=== PATIENT | female | born 1935 | race Caucasian/White ===

== ENCOUNTER → 2018-01-22 | Outpatient (CLI) | payer MEDICARE, BC ==
[2018-01-22 12:23] LABS: BASO # 0.1 10*3/uL (0.0-0.1); EOS # 0.1 10*3/uL (0.0-0.4); EOS % 1.4 % (1.0-4.0); HEMATOCRIT 35.2 % (37.0-47.0); HEMOGLOBIN 11.8 g/dl (12.0-16.0); LYMPH # 1.4 10*3/uL (1.3-4.4); LYMPH % 23.9 % (27.0-41.0); MEAN CELL VOLUME 95.1 fl (81.0-99.0); MEAN CORPUSCULAR HGB 31.9 pg (27.0-31.0); MEAN CORPUSCULAR HGB CONC 33.5 g/dl (33.0-37.0); MEAN PLATELET VOLUME 9.2 fl (9.6-12.3); MONO # 0.5 10*3/uL (0.1-1.0); MONO % 8.8 % (3.0-9.0); NEUT # 3.8 10*3/uL (2.3-7.9); NEUT % 64.7 % (47.0-73.0); PLATELET COUNT AUTOMATED 197 10*3/uL (130-400); RED CELL DISTRI WIDTH 13.3 % (0-14.5); WHITE BLOOD COUNT 5.9 10*3/uL (4.8-10.8)
[2018-01-22 12:52] LABS: ALBUMIN 3.7 gm/dl (3.1-4.5); BILIRUBIN, DIRECT 0.2 mg/dL (0.0-0.2); CREATININE 1.23 mg/dL (0.55-1.02); POTASSIUM 3.7 mmol/L (3.5-5.1); TOTAL PROTEIN 6.8 gm/dL (6.4-8.2)
== END | disposition home or self-care (01) ==
LOC: US 10:46
PROVIDERS: Family Medicine
DX: I65.23 Occlusion and stenosis of bilateral carotid arteries (principal); J44.9 Chronic obstructive pulmonary disease, unspecified; K44.9 Diaphragmatic hernia without obstruction or gangrene; I10 Essential (primary) hypertension; R55 Syncope and collapse; R51 Headache; Z79.899 Other long term (current) drug therapy

== ENCOUNTER → 2018-01-25 | Outpatient (CLI) | payer MEDICARE, BC | END | disposition home or self-care (01) | LOC: CT 01-24 14:00 | DX: I65.23 Occlusion and stenosis of bilateral carotid arteries (principal); R90.82 White matter disease, unspecified ==

== ENCOUNTER 2019-03-02 14:17 | Emergency (ER) | payer MEDICARE, BC ==
[~2019-03-02] VITALS: Ht 170.1 cm; Wt 60.3 kg
--- NOTE | ~2019-03-02 | EKG ---
[place], [place] ELECTROCARDIOGRAM REPORT NAME: DAVIDA BHAKTA UNIT #: [id number] ROOM: DOCTOR: NOEMY DRAFT REPORT BIRTHDATE: [birth year] [facility] Test Date: 2019-03-02 Test Time: 14:42:42 Pat Name: DAVIDA BHAKTA Department: Room: Gender: F Planning Technician: ALMAZ : 1935 Requested By: LAY DAVISON Order Number: [id number] Reading MD: Lilly Esposito MD Measurements Intervals [place] Rate: 61 P: 75 TN: 185 QRS: 17 QRSD: 100 T: 25 QT: 420 QTc: 423 Interpretive Statements Sinus rhythm Left ventricular hypertrophy Inferior infarct, old ST elevation, consider anterior injury Baseline wander in lead(s) V2 Electronically Signed On 03-05-2019 14:40:24 PDT by Lilly Esposito MD CM:EKGRPT:ELECTROCARDIOGRAM REPORT [id number] LAY SALGUERO DRAFT REPORT LAY DAVISON MD
[2019-03-02 14:57] LABS: BASO % 0.5 % (0.0-1.0); EOS # 0.1 10*3/uL (0.0-0.4); EOS % 1.3 % (1.0-4.0); HEMATOCRIT 32.4 % (37.0-47.0); HEMOGLOBIN 10.3 g/dl (12.0-16.0); LYMPH # 1.5 10*3/uL (1.3-4.4); LYMPH % 26.9 % (27.0-41.0); MEAN CORPUSCULAR HGB 29.3 pg (27.0-31.0); MEAN CORPUSCULAR HGB CONC 31.8 g/dl (33.0-37.0); MONO # 0.5 10*3/uL (0.1-1.0); MONO % 9.3 % (3.0-9.0); NEUT # 3.4 10*3/uL (2.3-7.9); NEUT % 61.6 % (47.0-73.0); PLATELET COUNT AUTOMATED 261 10*3/uL (130-400); RED BLOOD COUNT 3.52 10*6/uL (4.10-5.10); RED CELL DISTRI WIDTH 14.2 % (0-14.5); WHITE BLOOD COUNT 5.6 10*3/uL (4.8-10.8)
[2019-03-02 15:09] LABS: ACT PARTIAL THROMBO TIME 23.3 SECONDS (20.0-32.1); INTERNATIONAL NORM RATIO 0.9 (2.0-3.5)
[2019-03-02 15:14] LABS: ALBUMIN 3.6 gm/dl (3.1-4.5); ALKALINE PHOSPHATASE 88 U/L (45-117); BUN 15 mg/dl (7-24); CHLORIDE 104 mmol/L (98-107); CREATININE 0.81 mg/dL (0.55-1.02); POTASSIUM 4.1 mmol/L (3.5-5.1); SGOT/AST 19 IU/L (3-35); SGPT/ALT 27 U/L (12-78); SODIUM 139 mmol/L (136-145); TOTAL PROTEIN 6.7 gm/dL (6.4-8.2)
[2019-03-02 15:18] LABS: TROPONIN I < 0.015 ng/ml (<0.045)
[2019-03-02 15:29] LABS: BILIRUBIN NEGATIVE (NEGATIVE); BLOOD NEGATIVE (NEGATIVE); CLARITY CLEAR (CLEAR); COLOR YELLOW (YELLOW); GLUCOSE NEGATIVE (NEGATIVE); KETONE NEGATIVE (NEGATIVE); LEUKO ESTERASE NEGATIVE (NEGATIVE); NITRITE NEGATIVE (NEGATIVE); PH 5.5 (5.0-9.0); SPECIFIC GRAVITY <= 1.005 (1.005-1.030); UROBILINOGEN 0.2 E.U./dl (0.2-1.0)
[2019-03-02 15:40] LABS: RBC 0-2 rbc/hpf (0-2); WBC 0-2 wbc/hpf (0-5)
[2019-03-02 17:59] VITALS: BP 158/85
== END 2019-03-02 18:00 | disposition short-term general hospital (02) ==
LOC: ED 14:17
PROVIDERS: Emergency Medicine
DX: I63.9 Cerebral infarction, unspecified (principal); R53.1 Weakness; R51 Headache; I10 Essential (primary) hypertension; E78.00 Pure hypercholesterolemia, unspecified; Z88.8 Allergy status to other drugs, medicaments and biological substances; Z88.1 Allergy status to other antibiotic agents

== ENCOUNTER 2019-03-07 19:41 | Emergency (ER) | payer MEDICARE, BC ==
[~2019-03-07] VITALS: Ht 152.4 cm; Wt 57.7 kg
--- NOTE | ~2019-03-07 | EKG ---
[place], [place] ELECTROCARDIOGRAM REPORT NAME: DAVIDA BHAKTA UNIT #: [id number] ROOM: DOCTOR: NOEMY DRAFT REPORT BIRTHDATE: [address] [facility] Test Date: 2019-03-07 Test Time: 23:02:32 Pat Name: DAVIDA BHAKTA Department: Room: Gender: F [employer] Intelligence Technician: Carina Miller : 1935 Requested By: RENEE URIAS Order Number: [id number] Reading MD: Lilly Esposito MD Measurements Intervals [place] Rate: 76 P: 79 RI: 172 QRS: -1 QRSD: 101 T: 53 QT: 404 QTc: 455 Interpretive Statements Sinus rhythm Left atrial enlargement Left ventricular hypertrophy Inferior infarct, old Baseline wander in lead(s) V6 Compared to ECG 03/02/2019 14:42:42 Atrial abnormality now present Myocardial infarct finding still present ST (T wave) deviation still present Electronically Signed On 03-19-2019 3:35:22 PDT by Lilly Esposito MD CM:EKGRPT:ELECTROCARDIOGRAM REPORT [id number] RENEE BARROSO DRAFT REPORT RENEE URIAS DO
[2019-03-07] MEDS ORDERED: IBUPROFEN600 MG PO (20:03)
[2019-03-07] MEDS ORDERED: VITAMIN D32000 UNIT PO (20:07)
[2019-03-07] MEDS ORDERED: PLAVIX75 M1 PO (20:07)
[2019-03-07] MEDS ORDERED: HYDROCHLOROTH12.5 M3 PO (20:07)
[2019-03-07] MEDS ORDERED: ASPIRIN81 M1 PO (20:08)
[2019-03-07] MEDS ORDERED: DILTIAZEM60 MG PO (20:08)
[2019-03-07] MEDS ORDERED: MAGNESIUM OXID400 MG PO (20:08)
[2019-03-07] MEDS ORDERED: KLOR-CON M2020 ME1 PO (20:10)
[2019-03-07] MEDS ORDERED: FLORASTOR250 MG PO (20:10)
[2019-03-07] MEDS ORDERED: REQUIP0.5 MG PO (20:11)
[2019-03-07] MEDS ORDERED: 'CLONIDINE0.1 MG PO (20:11)
[2019-03-07] MEDS ORDERED: TYLENOL EXTRA500 MG PO (20:12)
[2019-03-07] MEDS ORDERED: LIPITOR40 MG PO (20:12)
[2019-03-07] MEDS ORDERED: MILK OF MA400 MG/5 M PO (20:12)
[2019-03-07 20:13] LABS: BASO % 0.6 % (0.0-1.0); EOS # 0.1 10*3/uL (0.0-0.4); EOS % 1.3 % (1.0-4.0); LYMPH # 1.5 10*3/uL (1.3-4.4); LYMPH % 21.6 % (27.0-41.0); MEAN CELL VOLUME 92.7 fl (81.0-99.0); MEAN CORPUSCULAR HGB 28.8 pg (27.0-31.0); MEAN PLATELET VOLUME 9.5 fl (9.6-12.3); MONO # 0.6 10*3/uL (0.1-1.0); MONO % 9.2 % (3.0-9.0); NEUT # 4.6 10*3/uL (2.3-7.9); NEUT % 67.2 % (47.0-73.0); PLATELET COUNT AUTOMATED 216 10*3/uL (130-400); RED BLOOD COUNT 3.13 10*6/uL (4.10-5.10); RED CELL DISTRI WIDTH 14.3 % (0-14.5); WHITE BLOOD COUNT 6.9 10*3/uL (4.8-10.8)
[2019-03-07] MEDS ORDERED: MELATONIN5 M6 PO (20:13)
[2019-03-07 20:23] LABS: ACT PARTIAL THROMBO TIME 22.8 SECONDS (20.0-32.1); INTERNATIONAL NORM RATIO 0.9 (2.0-3.5)
[2019-03-07 20:28] LABS: ALBUMIN 3.5 gm/dl (3.1-4.5); ALKALINE PHOSPHATASE 82 U/L (45-117); BUN 21 mg/dl (7-24); CHLORIDE 105 mmol/L (98-107); CREATININE 1.05 mg/dL (0.55-1.02); POTASSIUM 3.9 mmol/L (3.5-5.1); SGOT/AST 25 IU/L (3-35); SGPT/ALT 25 U/L (12-78); SODIUM 137 mmol/L (136-145); TOTAL PROTEIN 6.4 gm/dL (6.4-8.2)
[2019-03-07 20:30] LABS: TROPONIN I < 0.015 ng/ml (<0.045)
[2019-03-07 23:12] VITALS: BP 152/63
== END 2019-03-07 23:24 | disposition short-term general hospital (02) ==
LOC: ED 19:41
PROVIDERS: Student in an Organized Health Care Education/Training Program
DX: I63.9 Cerebral infarction, unspecified (principal); Z79.899 Other long term (current) drug therapy; Z79.82 Long term (current) use of aspirin; Z88.1 Allergy status to other antibiotic agents; Z88.8 Allergy status to other drugs, medicaments and biological substances

== ENCOUNTER 2019-06-04 11:17 | Emergency (ER) | payer MEDICARE, BC ==
--- NOTE | ~2019-06-04 | EKG ---
[place], [place] ELECTROCARDIOGRAM REPORT NAME: DAVIDA BHAKTA UNIT #: [id number] ROOM: DOCTOR: EPIPHANY DRAFT REPORT BIRTHDATE: [birth year] [facility] Test Date: 2019-06-04 Test Time: 11:25:02 Pat Name: DAVIDA BHAKTA Department: Room: Gender: F [employer]: : 1935 Requested By: NELLY DUMNOT Order Number: [id number] Reading MD: Jennifer Kasper MD Measurements Intervals [place] Rate: 64 P: 81 WI: 204 QRS: 34 QRSD: 101 T: 54 QT: 410 QTc: 423 Interpretive Statements Sinus rhythm Left atrial enlargement Low voltage, extremity leads Borderline ST elevation, anterior leads Compared to ECG 03/07/2019 23:02:32 Low QRS voltage now present ST (T wave) deviation now present Left ventricular hypertrophy no longer present Myocardial infarct finding no longer present Electronically Signed On 06-05-2019 8:14:33 PDT by Jennifer Kasper MD CM:EKGRPT:ELECTROCARDIOGRAM REPORT [id number] NELLY BARROSO DRAFT REPORT NELLY DUMONT DO
[~2019-06-04 11:17] MED LIST: 'CLONIDINE0.1 MG PO; ASPIRIN81 M1 PO; DILTIAZEM60 MG PO; FLORASTOR250 MG PO; HYDROCHLOROTH12.5 M3 PO; IBUPROFEN600 MG PO; KLOR-CON M2020 ME1 PO; LIPITOR40 MG PO; MAGNESIUM OXID400 MG PO; MELATONIN5 M6 PO; MILK OF MA400 MG/5 M PO; PLAVIX75 M1 PO; REQUIP0.5 MG PO; TYLENOL EXTRA500 MG PO; VITAMIN D32000 UNIT PO
[2019-06-04 12:10] LABS: BILIRUBIN NEGATIVE (NEGATIVE); BLOOD NEGATIVE (NEGATIVE); CLARITY CLEAR (CLEAR); COLOR YELLOW (YELLOW); GLUCOSE NEGATIVE (NEGATIVE); KETONE NEGATIVE (NEGATIVE); LEUKO ESTERASE NEGATIVE (NEGATIVE); NITRITE NEGATIVE (NEGATIVE); PH 6.5 (5.0-9.0); SPECIFIC GRAVITY <= 1.005 (1.005-1.030); UROBILINOGEN 0.2 E.U./dl (0.2-1.0)
[2019-06-04 12:20] LABS: BASO % 0.7 % (0.0-1.0); EOS # 0.1 10*3/uL (0.0-0.4); EOS % 1.9 % (1.0-4.0); HEMATOCRIT 24.1 % (37.0-47.0); HEMOGLOBIN 7.2 g/dl (12.0-16.0); LYMPH % 17.9 % (27.0-41.0); MEAN CELL VOLUME 79.5 fl (81.0-99.0); MEAN CORPUSCULAR HGB 23.8 pg (27.0-31.0); MEAN CORPUSCULAR HGB CONC 29.9 g/dl (33.0-37.0); MEAN PLATELET VOLUME 10.6 fl (9.6-12.3); MONO # 0.8 10*3/uL (0.1-1.0); MONO % 13.6 % (3.0-9.0); NEUT # 3.7 10*3/uL (2.3-7.9); NEUT % 65.5 % (47.0-73.0); PLATELET COUNT AUTOMATED 258 10*3/uL (130-400); RED BLOOD COUNT 3.03 10*6/uL (4.10-5.10); RED CELL DISTRI WIDTH 15.9 % (0-14.5); WHITE BLOOD COUNT 5.7 10*3/uL (4.8-10.8)
[2019-06-04 12:35] LABS: MUCOUS TRACE
[2019-06-04 12:36] LABS: EPITHELIAL CELLS 0-2; RBC 0-2 rbc/hpf (0-2)
[2019-06-04 12:51] LABS: ACT PARTIAL THROMBO TIME 22.9 SECONDS (20.0-32.1); INTERNATIONAL NORM RATIO 0.9 (2.0-3.5)
[2019-06-04 12:55] LABS: ALBUMIN 3.6 gm/dl (3.1-4.5); ALKALINE PHOSPHATASE 105 U/L (45-117); BUN 15 mg/dl (7-24); CHLORIDE 102 mmol/L (98-107); CREATININE 0.85 mg/dL (0.55-1.02); LIPASE 139 U/L (73-393); POTASSIUM 3.7 mmol/L (3.5-5.1); SGOT/AST 19 IU/L (3-35); SGPT/ALT 32 U/L (12-78); SODIUM 134 mmol/L (136-145); TOTAL PROTEIN 6.8 gm/dL (6.4-8.2)
[2019-06-04 13:01] LABS: TROPONIN I < 0.015 ng/ml (<0.045)
[2019-06-04 23:30] VITALS: BP 143/72
== END 2019-06-05 00:30 | disposition other institution (70) ==
LOC: ED 11:17
PROVIDERS: Nurse Practitioner Family
DX: D64.9 Anemia, unspecified (principal); R10.32 Left lower quadrant pain; I10 Essential (primary) hypertension; E11.9 Type 2 diabetes mellitus without complications; K21.9 Gastro-esophageal reflux disease without esophagitis; E78.5 Hyperlipidemia, unspecified; Z86.73 Personal history of transient ischemic attack (TIA), and cerebral infarction without residual deficits; Z88.8 Allergy status to other drugs, medicaments and biological substances; Z88.1 Allergy status to other antibiotic agents; Z88.6 Allergy status to analgesic agent; Z79.899 Other long term (current) drug therapy; Z79.82 Long term (current) use of aspirin

== ENCOUNTER → 2019-07-16 | Outpatient (CLI) | payer MEDICARE, BC | END | disposition home or self-care (01) | LOC: ORTHO 01:26 | DX: M16.12 Unilateral primary osteoarthritis, left hip (principal) ==

== ENCOUNTER 2019-10-16 14:42 | Emergency (ER) | payer MEDICARE, BC ==
[~2019-10-16] VITALS: Ht 152.4 cm; Wt 66.2 kg
[2019-10-16 15:05] VITALS: BP 192/72
[2019-10-16 16:04] LABS: BASO % 0.6 % (0.0-1.0); EOS # 0.1 10*3/uL (0.0-0.4); HEMATOCRIT 29.1 % (37.0-47.0); HEMOGLOBIN 8.6 g/dl (12.0-16.0); LYMPH # 1.5 10*3/uL (1.3-4.4); LYMPH % 22.7 % (27.0-41.0); MEAN CELL VOLUME 86.6 fl (81.0-99.0); MEAN CORPUSCULAR HGB 25.6 pg (27.0-31.0); MEAN CORPUSCULAR HGB CONC 29.6 g/dl (33.0-37.0); MONO # 0.8 10*3/uL (0.1-1.0); MONO % 12.4 % (3.0-9.0); NEUT # 4.1 10*3/uL (2.3-7.9); PLATELET COUNT AUTOMATED 294 10*3/uL (130-400); RED BLOOD COUNT 3.36 10*6/uL (4.10-5.10); RED CELL DISTRI WIDTH 18.5 % (0-14.5); WHITE BLOOD COUNT 6.5 10*3/uL (4.8-10.8)
[2019-10-16 16:09] LABS: BILIRUBIN NEGATIVE (NEGATIVE); BLOOD NEGATIVE (NEGATIVE); CLARITY CLEAR (CLEAR); COLOR YELLOW (YELLOW); GLUCOSE NEGATIVE (NEGATIVE); KETONE NEGATIVE (NEGATIVE); LEUKO ESTERASE NEGATIVE (NEGATIVE); NITRITE NEGATIVE (NEGATIVE); SPECIFIC GRAVITY 1.015 (1.005-1.030); UROBILINOGEN 0.2 E.U./dl (0.2-1.0)
[2019-10-16 16:22] LABS: ALBUMIN 3.8 gm/dl (3.1-4.5); ALKALINE PHOSPHATASE 124 U/L (45-117); BUN 15 mg/dl (7-24); CHLORIDE 105 mmol/L (98-107); CREATININE 0.85 mg/dL (0.55-1.02); POTASSIUM 3.7 mmol/L (3.5-5.1); SGOT/AST 20 IU/L (3-35); SGPT/ALT 25 U/L (12-78); SODIUM 139 mmol/L (136-145); TOTAL PROTEIN 7.3 gm/dL (6.4-8.2); TROPONIN I < 0.015 ng/ml (<0.045)
[2019-10-16 16:23] LABS: ACT PARTIAL THROMBO TIME 23.3 SECONDS (20.0-32.1); INTERNATIONAL NORM RATIO 0.9 (2.0-3.5)
[2019-10-16 16:28] LABS: WBC 0-2 wbc/hpf (0-5)
== END 2019-10-16 16:41 | disposition home or self-care (01) ==
LOC: ED 14:42
PROVIDERS: Emergency Medicine
DX: R51 Headache (principal); H53.8 Other visual disturbances; R55 Syncope and collapse; G30.9 Alzheimer's disease, unspecified; F02.80 Dementia in other diseases classified elsewhere, unspecified severity, without behavioral disturbance, psychotic disturbance, mood disturbance, and anxiety; R47.81 Slurred speech; Z88.8 Allergy status to other drugs, medicaments and biological substances; Z88.1 Allergy status to other antibiotic agents; Z88.6 Allergy status to analgesic agent; Z79.82 Long term (current) use of aspirin; Z79.899 Other long term (current) drug therapy

== ENCOUNTER 2019-11-04 05:54 | Emergency (ER) | payer MEDICARE, BC ==
[~2019-11-04] VITALS: Ht 162.5 cm; Wt 64.0 kg
[2019-11-04 08:30] VITALS: BP 128/82
== END 2019-11-04 09:08 | disposition home or self-care (01) ==
LOC: ED 05:54
DX: S63.501A Unspecified sprain of right wrist, initial encounter (principal); S70.01XA Contusion of right hip, initial encounter; K21.9 Gastro-esophageal reflux disease without esophagitis; F03.90 Unspecified dementia, unspecified severity, without behavioral disturbance, psychotic disturbance, mood disturbance, and anxiety; I10 Essential (primary) hypertension; E78.5 Hyperlipidemia, unspecified; G43.909 Migraine, unspecified, not intractable, without status migrainosus; Z86.73 Personal history of transient ischemic attack (TIA), and cerebral infarction without residual deficits; Z88.8 Allergy status to other drugs, medicaments and biological substances; Z88.1 Allergy status to other antibiotic agents; Z79.82 Long term (current) use of aspirin; W01.0XXA Fall on same level from slipping, tripping and stumbling without subsequent striking against object, initial encounter; Y93.89 Activity, other specified; Y92.121 Bathroom in nursing home as the place of occurrence of the external cause; Y99.8 Other external cause status

== ENCOUNTER 2019-11-10 14:56 | Emergency (ER) | payer MEDICARE, BC ==
[~2019-11-10] VITALS: Ht 160 cm; Wt 49.9 kg
[2019-11-10 14:57] VITALS: BP 123/59
[2019-11-10 16:03] LABS: BASO % 0.6 % (0.0-1.0); EOS # 0.2 10*3/uL (0.0-0.4); EOS % 2.3 % (1.0-4.0); HEMATOCRIT 27.2 % (37.0-47.0); HEMOGLOBIN 8.2 g/dl (12.0-16.0); LYMPH % 14.8 % (27.0-41.0); MEAN CELL VOLUME 84.5 fl (81.0-99.0); MEAN CORPUSCULAR HGB 25.5 pg (27.0-31.0); MEAN CORPUSCULAR HGB CONC 30.1 g/dl (33.0-37.0); MEAN PLATELET VOLUME 9.2 fl (9.6-12.3); MONO # 0.9 10*3/uL (0.1-1.0); MONO % 13.5 % (3.0-9.0); NEUT # 4.8 10*3/uL (2.3-7.9); NEUT % 68.5 % (47.0-73.0); PLATELET COUNT AUTOMATED 224 10*3/uL (130-400); RED BLOOD COUNT 3.22 10*6/uL (4.10-5.10); WHITE BLOOD COUNT 6.9 10*3/uL (4.8-10.8)
[2019-11-10 16:19] LABS: ALBUMIN 3.4 gm/dl (3.1-4.5); ALKALINE PHOSPHATASE 109 U/L (45-117); BUN 18 mg/dl (7-24); CHLORIDE 105 mmol/L (98-107); CREATININE 0.96 mg/dL (0.55-1.02); POTASSIUM 3.1 mmol/L (3.5-5.1); SGOT/AST 22 IU/L (3-35); SGPT/ALT 27 U/L (12-78); SODIUM 137 mmol/L (136-145); TOTAL PROTEIN 6.8 gm/dL (6.4-8.2)
[2019-11-10 18:00] LABS: BLOOD TRACE-LYSED (NEGATIVE); CLARITY SL CLOUDY (CLEAR); COLOR YELLOW (YELLOW); SPECIFIC GRAVITY 1.015 (1.005-1.030)
[2019-11-10 18:01] LABS: BILIRUBIN NEGATIVE (NEGATIVE); EPITHELIAL CELLS 0-2; GLUCOSE NEGATIVE (NEGATIVE); KETONE NEGATIVE (NEGATIVE); LEUKO ESTERASE NEGATIVE (NEGATIVE); NITRITE NEGATIVE (NEGATIVE); RBC 0-2 rbc/hpf (0-2); UROBILINOGEN 0.2 E.U./dl (0.2-1.0)
[2019-11-10] MEDS ORDERED: MUCINEX ER600 MG PO (18:37)
== END 2019-11-10 18:47 | disposition other institution (70) ==
LOC: ED 14:56
PROVIDERS: Physician Assistant
DX: R09.89 Other specified symptoms and signs involving the circulatory and respiratory systems (principal); R05 Cough; K21.9 Gastro-esophageal reflux disease without esophagitis; I10 Essential (primary) hypertension; G43.909 Migraine, unspecified, not intractable, without status migrainosus; E78.5 Hyperlipidemia, unspecified; Z88.8 Allergy status to other drugs, medicaments and biological substances; Z79.899 Other long term (current) drug therapy; Z79.82 Long term (current) use of aspirin; Z86.73 Personal history of transient ischemic attack (TIA), and cerebral infarction without residual deficits

== ENCOUNTER 2020-07-31 18:53 | Inpatient (IN) | payer MEDICARE, BC, MEDICAID ==
[~2020-07-31] VITALS: Ht 162.5 cm; Wt 54.9 kg
[~2020-07-31 18:53] MED LIST changes: +MUCINEX ER600 MG PO
[2020-07-31 18:57] VITALS: BP 154/52
[2020-07-31 19:33] LABS: BASO % 0.4 % (0.0-1.0); EOS # 0.1 10*3/uL (0.0-0.4); EOS % 2.5 % (1.0-4.0); HEMATOCRIT 25.4 % (37.0-47.0); LYMPH # 1.4 10*3/uL (1.3-4.4); LYMPH % 25.5 % (27.0-41.0); MEAN CELL VOLUME 81.2 fl (81.0-99.0); MEAN CORPUSCULAR HGB 22.7 pg (27.0-31.0); MONO # 0.8 10*3/uL (0.1-1.0); MONO % 13.5 % (3.0-9.0); NEUT # 3.2 10*3/uL (2.3-7.9); NEUT % 57.9 % (47.0-73.0); PLATELET COUNT AUTOMATED 221 10*3/uL (130-400); RED BLOOD COUNT 3.13 10*6/uL (4.10-5.10); RED CELL DISTRI WIDTH 18.6 % (0-14.5); WHITE BLOOD COUNT 5.5 10*3/uL (4.8-10.8)
[2020-07-31 19:46] LABS: BUN 17 mg/dl (7-24); CHLORIDE 116 mmol/L (98-107); CREATININE 0.79 mg/dL (0.55-1.02); POTASSIUM 5.1 mmol/L (3.5-5.1); SODIUM 144 mmol/L (136-145)
--- NOTE | 2020-07-31 20:46 | NUR ---
PT DAUGHTER, PETR ALBA, CALLED AND WAS PROVIDED UPDATE ON PT.SHE PROVIDES PASSWORD "[id number]".
[2020-07-31 21:00] VITALS: BP 182/54
--- NOTE | 2020-07-31 21:00 | NUR ---
A 85, admitted to , under the services of GIA Lucas MD with a diagnosis of ANEMIA, GI BLEED. Chief complaint is BLOOD LOSS, POSITIVE OCCULT BLOOD. Patient arrived via bed from ER. Monitor applied. Initial assessment completed. Vital signs taken and recorded. GIA LUCAS MD notified of admission to the unit. Orders received. See assessment for past medical history, medications and allergies. Patient and/or family oriented to unit. [facility] visitation policy reviewed. Clothing/patient valuable form completed. MERON HUTTON
[2020-07-31] MEDS ORDERED: COREG6.25 MG PO (21:18)
[2020-07-31] MEDS ORDERED: BRILINTA90 M1 PO (21:19)
[2020-07-31] MEDS ORDERED: OCUVITE EYE +1 EACH PO (21:22)
[2020-07-31] MEDS ORDERED: OMEPRAZOLE MAGN20 MG PO (21:22)
[2020-07-31] MEDS ORDERED: NAMENDA10 MG PO (21:23)
[2020-07-31] MEDS ORDERED: BREO ELLIPTA 21 EACH INH (21:24)
[2020-07-31] MEDS ORDERED: ASPERCREME LIDO73 ML T (21:24)
[2020-07-31] MEDS ORDERED: ROBITUSSIN5 ML PO (21:28)
[2020-08-01] VITALS: BP 156/61
--- NOTE | 2020-08-01 01:25 | NUR ---
Patient set off bed alarm, patient very confused, pulled out iv and took of gown and heart monitor. Reoriented patient to hospital, started new iv and replaced heart monitor. Bed alarm set, reminded patient of call light.
[2020-08-01 06:52] LABS: BASO % 0.5 % (0.0-1.0); EOS # 0.2 10*3/uL (0.0-0.4); HEMATOCRIT 27.5 % (37.0-47.0); LYMPH # 1.1 10*3/uL (1.3-4.4); LYMPH % 18.4 % (27.0-41.0); MEAN CELL VOLUME 81.1 fl (81.0-99.0); MEAN CORPUSCULAR HGB 22.4 pg (27.0-31.0); MEAN CORPUSCULAR HGB CONC 27.6 g/dl (33.0-37.0); MONO # 0.5 10*3/uL (0.1-1.0); MONO % 8.1 % (3.0-9.0); NEUT # 4.3 10*3/uL (2.3-7.9); NEUT % 69.8 % (47.0-73.0); PLATELET COUNT AUTOMATED 248 10*3/uL (130-400); RED BLOOD COUNT 3.39 10*6/uL (4.10-5.10); RED CELL DISTRI WIDTH 18.3 % (0-14.5); WHITE BLOOD COUNT 6.1 10*3/uL (4.8-10.8)
--- NOTE | 2020-08-01 07:00 | NUR ---
ARRIVED ON SHIFT, REPORT RECEIVED FROM OFFGOING NURSE, ASSUMED CARE OF PATIENT.
[2020-08-01 07:28] LABS: CHLORIDE 112 mmol/L (98-107); SODIUM 143 mmol/L (136-145)
--- NOTE | 2020-08-01 07:35 | NUR ---
INTRODUCED SELF TO PATIENT, BED IN LOW POSITION, WHEEL LOCKS ENGAGED, SIDE RAILS UP X 2 FOR TURNING AND REPOSITIONING, BED ALARM ON, CALL LIGHT WITHIN REACH, NO NEEDS VOICED AT THIS TIME, WHITE BOARD UPDATED.
[2020-08-01 07:38] LABS: BUN 10 mg/dl (7-24); CREATININE 0.64 mg/dL (0.55-1.02); IRON 16 ug/dL (50-170)
--- NOTE | 2020-08-01 09:28 | NUR ---
Shift chart check completed.
[2020-08-01 12:00] VITALS: BP 159/86
--- NOTE | 2020-08-01 15:00 | NUR ---
PICKED PATIENT UP AT THIS TIME FROM [facility]. REPORT RECEIVED. PATIENT LAYING IN BED. CO LEFT SHOULDER PAIN. NOTIFIED AND NEW ORDERS WERE RECEIVED. ASSESSMENT COMPLETE. RESPS EASY AND REGULAR. CALL LIGHT IN REACH. BED ALARM ON.
--- NOTE | 2020-08-01 15:31 | NUR ---
24 HR chart check completed.
--- NOTE | 2020-08-01 15:34 | NUR ---
MEDICATED WITH PRN TYLENOL FOR CO LEFT SHOULDER PAIN. WILL ASSESS EFFECTIVENESS.
[2020-08-01 16:00] VITALS: BP 149/70
--- NOTE | 2020-08-01 16:34 | NUR ---
TYLENOL HELPED SOME PER PATIENT.
--- NOTE | 2020-08-01 18:17 | NUR ---
PREP STARTED FOR EGD PER 'S ORDERS.
[2020-08-01 20:00] VITALS: BP 192/88
--- NOTE | 2020-08-01 20:57 | NUR ---
IX PO NORVASC GIVEN PER DR DOLAN FOR ELEVATED BP
--- NOTE | 2020-08-01 20:57 | NUR ---
2019 TYLENOL GIVEN FOR C/O HEADACHE AND LEG ACHE
--- NOTE | 2020-08-01 21:44 | NUR ---
PATIENT RESTING AT THIS TIME.
[2020-08-02] VITALS (9 sets, daily range): BP systolic 103–171; BP diastolic 55–88
--- NOTE | 2020-08-02 01:53 | NUR ---
tap water enema given at this time.
--- NOTE | 2020-08-02 08:20 | NUR ---
Patient comes in from [facility] manager intermediate resident. Covid test ordered.
--- NOTE | 2020-08-02 09:00 | NUR ---
CM in to see patient. She is a LTC resident at [facility] and plans to return there upon discharge. She states she ambulates with a walker or gets around in a wheelchair. regional planner following. She is awaiting her EGD/colo today.
--- NOTE | 2020-08-02 12:52 | NUR ---
PATIENT OFF THE FLOOR FOR EGD/COLO.
--- NOTE | 2020-08-02 15:50 | NUR ---
PATIENT BACK FROM SURGERY.
--- NOTE | 2020-08-02 15:58 | NUR ---
NEW ORDERS RECEIVED AND PUT IN FROM . DR. ARRIAZA STATES HE WILL SEE PATIENT TOMORROW.
--- NOTE | 2020-08-02 16:17 | NUR ---
PATIENT RESTING IN BED. POSITIONED FOR COMFORT. WARM BLANKETS PROVIDED. BED ALARM ON. CALL LIGHT IN REACH.
--- NOTE | 2020-08-02 22:00 | NUR ---
PATIENT'S GLASSES WERE FOUND AND GIVEN BACK TO HER
[2020-08-03] VITALS (12 sets, daily range): BP systolic 122–163; BP diastolic 45–85
[2020-08-03 06:44] LABS: BASO % 0.2 % (0.0-1.0); EOS # 0.1 10*3/uL (0.0-0.4); EOS % 1.2 % (1.0-4.0); HEMATOCRIT 25.4 % (37.0-47.0); LYMPH # 1.2 10*3/uL (1.3-4.4); LYMPH % 13.6 % (27.0-41.0); MEAN CELL VOLUME 81.2 fl (81.0-99.0); MEAN CORPUSCULAR HGB 22.7 pg (27.0-31.0); MEAN PLATELET VOLUME 10.1 fl (9.6-12.3); MONO # 0.9 10*3/uL (0.1-1.0); MONO % 9.3 % (3.0-9.0); NEUT # 6.9 10*3/uL (2.3-7.9); NEUT % 75.5 % (47.0-73.0); PLATELET COUNT AUTOMATED 234 10*3/uL (130-400); RED BLOOD COUNT 3.13 10*6/uL (4.10-5.10); RED CELL DISTRI WIDTH 18.6 % (0-14.5); WHITE BLOOD COUNT 9.1 10*3/uL (4.8-10.8)
[2020-08-03 07:05] LABS: ALBUMIN 2.9 gm/dl (3.1-4.5); ALKALINE PHOSPHATASE 95 U/L (45-117); BUN 7 mg/dl (7-24); CHLORIDE 112 mmol/L (98-107); CREATININE 0.81 mg/dL (0.55-1.02); SGOT/AST 44 IU/L (3-35); SGPT/ALT 16 U/L (12-78); SODIUM 144 mmol/L (136-145)
--- NOTE | 2020-08-03 16:05 | NUR ---
DR. RAE'S OFFICE NOTIFIED OF CONSULT.
--- NOTE | 2020-08-03 19:30 | NUR ---
PATIENT IS NOT HAVING ANY S&S INDICATING REACTION TO BLOOD TRANSFUSION. RATE OF FLOW INCREASED TO 200 CC/HR
--- NOTE | 2020-08-03 20:00 | NUR ---
IV started left antecubital with #22 protective cath after 0 attempts. Site prepped with Chloroprep. Sterile dressing applied. Patient tolerated procedure well. IV PRBC infusing at 200 cc/hr. ABDIRASHID COCHRAN
--- NOTE | 2020-08-03 20:00 | NUR ---
Hep Lock discontinued, CHERELLE. Site symptomatic, PULLED OUT. Pressure applied. Sterile dressing applied. ABDIRASHID COCHRAN
--- NOTE | 2020-08-03 20:23 | NUR ---
C/O RIGHT SHOULDER AND UPPER ARM PAIN. TYLENOL GIVEN. PATIENT ALERT, UNFORGETFUL AT TIMES. ABLE TO FOLLOW DIRECTIONS. BLOOD PRODUCT RUNNING.
--- NOTE | 2020-08-03 20:27 | NUR ---
BLOOD TRANSFUSION COMPLETED AT THIS TIME, NO S&S TO INDICATE REACTION TO BLOOD PRODUCT. WILL CONTINUE TO MONITOR AND OBTAINED VITALS PER POLICY/PROCEDURES.
--- NOTE | 2020-08-03 20:57 | NUR ---
POST TRANFUSION VITALS ARE WNL. PATIENT HAD NO COMPLAINTS INDICATING REACTION TO BLOOD PRODUCT. WILL CONTINUE TO MONITOR
--- NOTE | 2020-08-03 21:23 | NUR ---
REASSESSMENT OF PAIN, PATIENT NOT AVOIDING RIGHT SHOULDER LYING NOR GARDING.
[2020-08-04] VITALS: BP 142/62
[2020-08-04 06:17] LABS: BASO % 0.4 % (0.0-1.0); EOS # 0.2 10*3/uL (0.0-0.4); EOS % 1.9 % (1.0-4.0); HEMATOCRIT 30.7 % (37.0-47.0); LYMPH # 1.6 10*3/uL (1.3-4.4); LYMPH % 14.1 % (27.0-41.0); MEAN CELL VOLUME 81.2 fl (81.0-99.0); MEAN CORPUSCULAR HGB 23.8 pg (27.0-31.0); MEAN CORPUSCULAR HGB CONC 29.3 g/dl (33.0-37.0); MEAN PLATELET VOLUME 9.9 fl (9.6-12.3); MONO # 0.8 10*3/uL (0.1-1.0); MONO % 7.3 % (3.0-9.0); NEUT # 8.5 10*3/uL (2.3-7.9); NEUT % 76.1 % (47.0-73.0); PLATELET COUNT AUTOMATED 205 10*3/uL (130-400); RED BLOOD COUNT 3.78 10*6/uL (4.10-5.10); RED CELL DISTRI WIDTH 18.3 % (0-14.5); WHITE BLOOD COUNT 11.2 10*3/uL (4.8-10.8)
--- NOTE | 2020-08-04 07:00 | NUR ---
IN TO SEE PATIENT.
--- NOTE | 2020-08-04 07:45 | NUR ---
PATIENT RESTING IN BED. VOICES NO CONCERNS AT THIS TIME. DENIES ANY NEEDS. ASSESSMENT COMPLETE. RESPS ERND. CALL LIGHT IN REACH.
[2020-08-04 08:00] VITALS: BP 150/46
[2020-08-04 08:23] LABS: BUN 6 mg/dl (7-24); CHLORIDE 114 mmol/L (98-107); CREATININE 0.66 mg/dL (0.55-1.02); POTASSIUM 3.2 mmol/L (3.5-5.1); SODIUM 143 mmol/L (136-145)
--- NOTE | 2020-08-04 09:00 | NUR ---
CM in to see patient. No new needs or request at this time. When medically stable she will be discharged to [facility] where she is a LTC resident. cement worker following.
[2020-08-04 12:00] VITALS: BP 155/57
--- NOTE | 2020-08-04 12:01 | NUR ---
24 HR chart check completed.
--- NOTE | 2020-08-04 13:30 | NUR ---
IN TO SEE PATIENT.
[2020-08-04 16:00] VITALS: BP 148/50
[2020-08-04 20:00] VITALS: BP 161/60
--- NOTE | 2020-08-04 23:38 | NUR ---
PRN TYLENOL GIVEN FOR PT COMPLAINTS OF RIGHT SHOULDER PAIN RATING IT 6/10. CALL LIGHT WITHN REACH, WILL MONITOR
[2020-08-05] VITALS: BP 164/80
--- NOTE | 2020-08-05 00:30 | NUR ---
PRN MEDICATION APPEARS EFFECTIVE, PT SLEEPING
[2020-08-05 06:37] LABS: BASO % 0.5 % (0.0-1.0); EOS # 0.3 10*3/uL (0.0-0.4); EOS % 3.4 % (1.0-4.0); HEMATOCRIT 29.7 % (37.0-47.0); LYMPH # 1.4 10*3/uL (1.3-4.4); LYMPH % 15.5 % (27.0-41.0); MEAN CELL VOLUME 81.6 fl (81.0-99.0); MEAN CORPUSCULAR HGB 23.9 pg (27.0-31.0); MEAN CORPUSCULAR HGB CONC 29.3 g/dl (33.0-37.0); MEAN PLATELET VOLUME 10.4 fl (9.6-12.3); MONO # 0.8 10*3/uL (0.1-1.0); NEUT # 6.3 10*3/uL (2.3-7.9); NEUT % 71.3 % (47.0-73.0); PLATELET COUNT AUTOMATED 213 10*3/uL (130-400); RED BLOOD COUNT 3.64 10*6/uL (4.10-5.10); RED CELL DISTRI WIDTH 18.1 % (0-14.5); WHITE BLOOD COUNT 8.9 10*3/uL (4.8-10.8)
[2020-08-05 07:00] LABS: BUN 9 mg/dl (7-24); CHLORIDE 110 mmol/L (98-107); CREATININE 0.74 mg/dL (0.55-1.02); SODIUM 142 mmol/L (136-145)
[2020-08-05 08:00] VITALS: BP 146/84
--- NOTE | 2020-08-05 08:00 | NUR ---
Updated clinicals faxed to [facility]; Covid test was negative. 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
[2020-08-05] MEDS ORDERED: FEROSUL325 MG PO (08:03)
[2020-08-05] MEDS ORDERED: COREG12.5 M1 PO (08:06)
[2020-08-05] MEDS ORDERED: VOLTAREN100 GM TD (08:06)
--- NOTE | 2020-08-05 08:20 | NUR ---
TYLENOL GIVEN FOR C/O RT SHOULDER PAIN. WILL MONITOR.
--- NOTE | 2020-08-05 09:02 | NUR ---
Patient is discharged to return to [facility] via [place] at 12:00 noon. Discharge orders and summary faxed. NH, nursing/house steward/stewardess and daughter all notified.
--- NOTE | 2020-08-05 09:20 | NUR ---
TYLENOL EFFECTIVE PER PT.
--- NOTE | 2020-08-05 12:15 | NUR ---
[facility] Discharge instructions reviewed with patient/family. Patient receptive and verbalizes understanding. Follow-up care arranged. Written instructions given to patient/family. WILMA GARZON
== END 2020-08-05 12:12 | DRG 378 ==
LOC: ED 18:53 → EDHOLD 20:13 → 4E 20:13
PROVIDERS: Internal Medicine; ADMIT Internal Medicine; ATTEND Internal Medicine
PROC: 0DB68ZX Excision of Stomach, Via Natural or Artificial Opening Endoscopic, Diagnostic (ICD-10-PCS; principal; 2020-08-02)
PROC: 0DBH8ZX Excision of Cecum, Via Natural or Artificial Opening Endoscopic, Diagnostic (ICD-10-PCS; principal; 2020-08-02)
PROC: 30233N1 Transfusion of Nonautologous Red Blood Cells into Peripheral Vein, Percutaneous Approach (ICD-10-PCS; 2020-08-03)
DX: K29.01 Acute gastritis with bleeding (principal); E44.1 Mild protein-calorie malnutrition; E78.2 Mixed hyperlipidemia; Z20.828 Contact with and (suspected) exposure to other viral communicable diseases; D50.0 Iron deficiency anemia secondary to blood loss (chronic); I65.29 Occlusion and stenosis of unspecified carotid artery; I10 Essential (primary) hypertension; K44.9 Diaphragmatic hernia without obstruction or gangrene; B37.9 Candidiasis, unspecified; E87.6 Hypokalemia; K57.31 Diverticulosis of large intestine without perforation or abscess with bleeding; I35.0 Nonrheumatic aortic (valve) stenosis; Z88.6 Allergy status to analgesic agent; Z88.1 Allergy status to other antibiotic agents; Z88.8 Allergy status to other drugs, medicaments and biological substances; Z86.73 Personal history of transient ischemic attack (TIA), and cerebral infarction without residual deficits; Z79.899 Other long term (current) drug therapy

== ENCOUNTER 2021-01-22 14:19 | Emergency (ER) | payer MEDICARE, BC ==
[~2021-01-22 14:19] MED LIST changes: +ASPERCREME LIDO73 ML T; +BREO ELLIPTA 21 EACH INH; +BRILINTA90 M1 PO; +COREG12.5 M1 PO; +COREG6.25 MG PO; +FEROSUL325 MG PO; +NAMENDA10 MG PO; +OCUVITE EYE +1 EACH PO; +OMEPRAZOLE MAGN20 MG PO; +ROBITUSSIN5 ML PO; +VOLTAREN100 GM TD
[2021-01-22 14:31] VITALS: BP 184/67
[2021-01-22 14:49] LABS: BASO % 0.5 % (0.0-1.0); EOS # 0.1 10*3/uL (0.0-0.4); EOS % 1.7 % (1.0-4.0); HEMATOCRIT 37.2 % (37.0-47.0); LYMPH # 1.4 10*3/uL (1.3-4.4); LYMPH % 21.9 % (27.0-41.0); MEAN CELL VOLUME 102.8 fl (81.0-99.0); MEAN CORPUSCULAR HGB 33.1 pg (27.0-31.0); MEAN CORPUSCULAR HGB CONC 32.3 g/dl (33.0-37.0); MEAN PLATELET VOLUME 9.4 fl (9.6-12.3); MONO # 0.7 10*3/uL (0.1-1.0); MONO % 10.8 % (3.0-9.0); NEUT # 4.1 10*3/uL (2.3-7.9); NEUT % 64.6 % (47.0-73.0); PLATELET COUNT AUTOMATED 160 10*3/uL (130-400); RED BLOOD COUNT 3.62 10*6/uL (4.10-5.10); RED CELL DISTRI WIDTH 12.3 % (0-14.5); WHITE BLOOD COUNT 6.3 10*3/uL (4.8-10.8)
[2021-01-22 15:01] LABS: BUN 18 mg/dl (7-24); CHLORIDE 111 mmol/L (98-107); CREATININE 0.68 mg/dL (0.55-1.02); POTASSIUM 4.9 mmol/L (3.5-5.1); SODIUM 140 mmol/L (136-145)
== END 2021-01-22 17:00 ==
LOC: ED 14:19
PROVIDERS: Emergency Medicine
DX: I65.23 Occlusion and stenosis of bilateral carotid arteries (principal); Z88.8 Allergy status to other drugs, medicaments and biological substances; Z88.6 Allergy status to analgesic agent; Z79.899 Other long term (current) drug therapy; W19.XXXA Unspecified fall, initial encounter; Y93.89 Activity, other specified; Y92.128 Other place in nursing home as the place of occurrence of the external cause; Y99.8 Other external cause status

== ENCOUNTER 2021-05-03 06:54 | Emergency (ER) | payer MEDICARE, BC ==
[2021-05-03 06:57] VITALS: BP 154/73
[2021-05-03 08:16] LABS: BILIRUBIN Negative (Negative); BLOOD Negative (Negative); CLARITY Clear (Clear); COLOR Yellow (Yellow); GLUCOSE Negative (Negative); KETONE Negative (Negative); LEUKO ESTERASE Trace (Negative); NITRITE Negative (Negative); UROBILINOGEN 0.2 E.U./dl (0.0-1.0)
[2021-05-03 08:17] LABS: BASO % 0.5 % (0.0-1.0); EOS # 0.2 10*3/uL (0.0-0.4); EOS % 2.5 % (1.0-4.0); HEMATOCRIT 39.5 % (37.0-47.0); LYMPH # 1.3 10*3/uL (1.3-4.4); MEAN CELL VOLUME 103.4 fl (81.0-99.0); MEAN CORPUSCULAR HGB CONC 31.9 g/dl (33.0-37.0); MEAN PLATELET VOLUME 9.6 fl (9.6-12.3); MONO # 0.5 10*3/uL (0.1-1.0); MONO % 8.1 % (3.0-9.0); NEUT # 4.3 10*3/uL (2.3-7.9); NEUT % 67.6 % (47.0-73.0); PLATELET COUNT AUTOMATED 200 10*3/uL (130-400); RED BLOOD COUNT 3.82 10*6/uL (4.10-5.10); RED CELL DISTRI WIDTH 12.9 % (0-14.5); WHITE BLOOD COUNT 6.3 10*3/uL (4.8-10.8)
[2021-05-03 08:25] LABS: BACTERIA 1+; MUCOUS 1+
[2021-05-03 08:31] LABS: ALBUMIN 3.5 gm/dl (3.1-4.5); ALKALINE PHOSPHATASE 157 U/L (45-117); BUN 13 mg/dl (7-24); CHLORIDE 112 mmol/L (98-107); CREATININE 0.55 mg/dL (0.55-1.02); LIPASE 79 U/L (73-393); POTASSIUM 4.4 mmol/L (3.5-5.1); SGOT/AST 17 IU/L (3-35); SGPT/ALT 21 U/L (12-78); SODIUM 140 mmol/L (136-145); TOTAL PROTEIN 6.6 gm/dL (6.4-8.2)
[2021-05-03 08:33] LABS: TROPONIN I < 0.015 ng/ml (<0.045)
== END 2021-05-03 12:02 ==
LOC: ED 06:54
PROVIDERS: Emergency Medicine
DX: S70.02XA Contusion of left hip, initial encounter (principal); R51.9 Headache, unspecified; M25.512 Pain in left shoulder; Z88.8 Allergy status to other drugs, medicaments and biological substances; Z88.1 Allergy status to other antibiotic agents; Z88.6 Allergy status to analgesic agent; Z79.899 Other long term (current) drug therapy; W19.XXXA Unspecified fall, initial encounter; Y93.89 Activity, other specified; Y92.128 Other place in nursing home as the place of occurrence of the external cause; Y99.8 Other external cause status

== ENCOUNTER 2021-05-18 21:49 | Emergency (ER) | payer MEDICARE, BC ==
[~2021-05-18] VITALS: Ht 154.9 cm; Wt 52.4 kg
[2021-05-18 21:51] VITALS: BP 165/54
== END 2021-05-19 00:39 ==
LOC: ED 21:49
DX: S00.83XA Contusion of other part of head, initial encounter (principal); S70.02XA Contusion of left hip, initial encounter; S40.012A Contusion of left shoulder, initial encounter; Z88.8 Allergy status to other drugs, medicaments and biological substances; Z88.1 Allergy status to other antibiotic agents; Z88.6 Allergy status to analgesic agent; Z79.899 Other long term (current) drug therapy; W19.XXXA Unspecified fall, initial encounter; Y93.89 Activity, other specified; Y92.128 Other place in nursing home as the place of occurrence of the external cause; Y99.8 Other external cause status

== ENCOUNTER → 2021-06-03 | Outpatient (CLI) | payer MEDICARE, BC | END | disposition home or self-care (01) | LOC: ORTHO 01:47 | PROVIDERS: ATTEND Orthopaedic Surgery | DX: M85.80 Other specified disorders of bone density and structure, unspecified site (principal); G95.89 Other specified diseases of spinal cord; R10.2 Pelvic and perineal pain ==

== ENCOUNTER 2021-08-18 20:38 | Emergency (ER) | payer MEDICARE, BC ==
[~2021-08-18] VITALS: Wt 53.3 kg
[2021-08-18 20:42] VITALS: BP 152/46
[2021-08-18] MEDS ORDERED: UTI-STAT L3875 MG/30 PO (21:05)
[2021-08-18] MEDS ORDERED: RIVASTIGMINE TAR6 M1 PO (21:06)
[2021-08-18] MEDS ORDERED: ZOLOFT50 MG PO (21:07)
[2021-08-18 21:33] LABS: BASO % 0.5 % (0.0-1.0); EOS # 0.2 10*3/uL (0.0-0.4); EOS % 3.1 % (1.0-4.0); HEMATOCRIT 36.7 % (37.0-47.0); LYMPH # 1.6 10*3/uL (1.3-4.4); LYMPH % 25.3 % (27.0-41.0); MEAN CELL VOLUME 101.9 fl (81.0-99.0); MEAN CORPUSCULAR HGB 32.8 pg (27.0-31.0); MEAN CORPUSCULAR HGB CONC 32.2 g/dl (33.0-37.0); MEAN PLATELET VOLUME 9.8 fl (9.6-12.3); MONO # 0.7 10*3/uL (0.1-1.0); MONO % 10.2 % (3.0-9.0); NEUT # 3.9 10*3/uL (2.3-7.9); NEUT % 60.6 % (47.0-73.0); PLATELET COUNT AUTOMATED 185 10*3/uL (130-400); RED CELL DISTRI WIDTH 13.6 % (0-14.5); WHITE BLOOD COUNT 6.4 10*3/uL (4.8-10.8)
[2021-08-18 21:50] LABS: ALKALINE PHOSPHATASE 118 U/L (45-117); BUN 16 mg/dl (7-24); CHLORIDE 112 mmol/L (98-107); CREATININE 0.54 mg/dL (0.55-1.02); POTASSIUM 4.2 mmol/L (3.5-5.1); SGOT/AST 22 IU/L (3-35); SGPT/ALT 24 U/L (12-78); SODIUM 140 mmol/L (136-145); TOTAL PROTEIN 6.2 gm/dL (6.4-8.2)
[2021-08-18 22:03] LABS: TROPONIN I < 0.015 ng/ml (<0.045)
[2021-08-18 22:03] LABS: BILIRUBIN Negative (Negative); BLOOD 1+ (Negative); CLARITY Clear (Clear); COLOR Yellow (Yellow); GLUCOSE Negative (Negative); KETONE Negative (Negative); LEUKO ESTERASE 3+ (Negative); NITRITE Negative (Negative); SPECIFIC GRAVITY <= 1.005 (1.001-1.030); UROBILINOGEN 0.2 E.U./dl (0.0-1.0)
[2021-08-18 22:11] LABS: BACTERIA 1+; EPITHELIAL CELLS TNTC
[2021-08-18] MEDS ORDERED: CEFUROXIME AXE500 MG PO (23:09)
== END 2021-08-19 00:09 ==
LOC: ED 20:38
PROVIDERS: Physician Assistant
DX: R42 Dizziness and giddiness (principal); Z88.1 Allergy status to other antibiotic agents; Z88.8 Allergy status to other drugs, medicaments and biological substances; Z79.899 Other long term (current) drug therapy; W18.39XA Other fall on same level, initial encounter; Y93.89 Activity, other specified; Y92.89 Other specified places as the place of occurrence of the external cause; Y99.8 Other external cause status

== ENCOUNTER 2021-11-11 23:46 | Emergency (ER) | payer MEDICARE, BC ==
[~2021-11-11] VITALS: Wt 54.9 kg
[~2021-11-11 23:46] MED LIST changes: +CEFUROXIME AXE500 MG PO; +RIVASTIGMINE TAR6 M1 PO; +UTI-STAT L3875 MG/30 PO; +ZOLOFT50 MG PO
[2021-11-12 01:21] VITALS: BP 168/74
== END 2021-11-12 02:05 ==
LOC: ED 23:46
DX: S09.90XA Unspecified injury of head, initial encounter (principal); Z79.899 Other long term (current) drug therapy; Z88.8 Allergy status to other drugs, medicaments and biological substances; W18.39XA Other fall on same level, initial encounter; Y93.89 Activity, other specified; Y92.89 Other specified places as the place of occurrence of the external cause; Y99.8 Other external cause status